=== PATIENT | male | born 1995 | race Caucasian/White ===

== ENCOUNTER → 2017-10-29 | Outpatient (CLI) | payer BC ==
--- NOTE | 2017-10-29 16:55 | RADIOLOGY IMAGING REPORT ---
FACILITY: [facility] PATIENT NAME: Delano Boyd : 1995 MR: [id number] V: [id number] EXAM DATE: ORDERING PHYSICIAN: JYOTSNA GOLDSMITH TECHNOLOGIST: Location: [facility] - [place] Patient: Delano Boyd : 1995 Visit/Account:[id number] Date of Sevice: 10/29/2017 TESTICULAR HISTORY: Palpable nodule posterior right scrotum COMPARISON: None. FINDINGS: Testes: The right testicle measures 3.6 x 1.9 x 2.7 cm. The left testicle measures 2.7 x 1.8 x 2.5 c m Symmetric and unremarkable blood flow documented by color and Duplex Doppler ultrasound. Epididymides: Head epididymis on the right measures 8.4 mm on the left 12.6 mm Blood flow is unremar kable in each epididymis by color Doppler ultrasound. Hydrocele: There are tiny bilateral hydroceles. Varicocele: No definite varicocele is seen however in the posterior right side of the scrotum there i s an ovoid slightly heterogeneous serpiginous structure with no internal blood flow measuring 3.3 x 0 .7 x 0.8 cm. This could possibly represent a thrombosed vein IMPRESSION: Tiny bilateral hydroceles The posterior right side of the scrotal sac there is an ovoid slightly heterogeneous serpiginous stru cture with no internal blood flow measuring 3.3 x 0.7 x 0.8 cm. This is in location of patient's pal pable finding. This may represent a thrombosed vein although the etiology is not certain consulta tion is recommended Report Dictated By: Johana Birch MD at 10/29/2017 4:46 PM Report E-Signed By: Johana Birch MD at 10/29/2017 4:50 PM WSN:[email or web address]
== END ==
LOC: US 14:43
PROVIDERS: ATTEND Family Medicine
DX: N50.89 Other specified disorders of the male genital organs (principal)
CPT/HCPCS: 76870